=== PATIENT | female | born 1980 ===

== ENCOUNTER 2020-01-10 23:22 | Emergency (ER) | payer OTHER, SELFPAY ==
[2020-01-10 23:40] VITALS: BP 146/84; PULSE 72; RESP 16; TEMP 36.7; O2SAT 100; BMI 24.7
--- NOTE | 2020-01-10 23:50 | ECG_ITS ---
[facility] Test Date: 2020-01-10 Pat Name: Ariella Milton Department: Room: Gender: Female [employer]: : 1980 Requested By: China Alicia Order Number: [id number] Dmepsey MD: Oz Laird M.D. Measurements Intervals [place] Rate: 69 P: 27 [place]: 140 QRS: 32 QRSD: 89 T: 36 QT: 378 QTc: 405 Interpretive Statements SINUS RHYTHM No previous ECG available for comparison Electronically Signed On 01-11-2020 13:48:48 CDT by Oz Laird M.D. [id number]
--- NOTE | 2020-01-11 00:30 | W.ED.ALLEREA ---
HPI - Allergic Reaction General: Chief complaint: Allergic Reaction Stated complaint: rash Time Seen by Provider: 01/11/20 00:08 Source: patient Mode of arrival: ambulatory Limitations: no limitations History of Present Illness: HPI narrative: Patient is a 39-year-old female who presents to ED today with a complaint of intermittent possible allergic reactions. Patient tells me over the past 3 to 4 weeks she has had a total of 4 episodes where she will break out in a diffuse pruritic rash. She tells me she will often feel palpitations along with the rash. She has not found any known environmental, household, chemical exposures. She does tell me 3 of the 4 episodes were while at work towards the end of her shift. She does report feeling very warm and hot prior to rash beginning and does not know if it could be temperature mediated. She states her last episode this evening occurred while at rest. She states on her previous episodes she has taken Benadryl with complete resolution of her symptoms. She denies any shortness of breath, difficulty breathing, lip/tongue swelling. MD complaint: allergic reaction and hives Onset (ago): week(s) Exposure: unknown Associated symptoms: Deny abdominal pain, nausea or vomiting Review of Systems Const: Denies: fever(s), chills, body aches, fatigue or malaise Eyes: Denies: change in vision, blurry vision, photophobia, floaters or seeing flashes ENMT: Denies: throat pain, uvular edema or odynophagia Card: Reports: palpitations; Denies: chest pain, irregular heart rhythm, edema, swelling of feet/ankles, lightheadedness, syncope, pre-syncope, dyspnea on exertion, orthopnea or leg pain with exertion Resp: Denies: dyspnea, productive cough, non-productive cough, pain on inspiration, hemoptysis or chest congestion GI: Denies: abdominal pain, nausea, vomiting, heartburn or diarrhea : Denies: dysuria Musc: Denies: neck pain, back pain or joint pain Skin/Breast: Reports: rash Neuro: Denies: headache(s), numbness in extremities, weakness in extremities or sensory changes [facility] ED Female Reproductive History: Date of last menstrual period: 01/04/20 Physical Exam Const: COMMON NORMALS: no acute distress, average body habitus, patient oriented x3, no limitations, healthy appearing, alert and well nourished GENERAL APPEARANCE: cooperative ORIENTATION/CONSCIOUSNESS: Yes oriented to person, Yes oriented to place and Yes oriented to time HENMT: COMMON NORMALS: normocephalic and atraumatic HEAD & SCALP: normal to inspection, normocephalic and atraumatic FACE & SINUS: normal facial exam MOUTH: Normal oral and palatal mucosa present, lip normal and tongue normal THROAT: posterior oropharynx normal; no uvular edema Eye: GENERAL EYE: appearance normal, both eyes and all related structures Neck/C-Spine: COMMON NORMALS: full ROM, no lymphadenopathy, supple and no meningeal signs Chest: COMMONS NORMALS: normal inspection of the chest Resp: COMMON NORMALS: normal respiratory effort and clear to auscultation bilaterally AUSCULTATION: clear to auscultation bilaterally Cardio: COMMON NORMALS: regular rate and regular rhythm RATE: regular rate RHYTHM: regular rhythm GI: COMMON NORMALS: Normal to inspection, nondistended, normoactive bowel sounds present, Soft to palpation, non-tender, No hepatosplenomegaly present and no masses PALPATION: Yes Soft to palpation and Yes No hepatosplenomegaly present : COMMON NORMALS: Yes no CVA tenderness BLADDER/KIDNEY EXAM: Yes no CVA tenderness Back/Pelvis: COMMON NORMALS: no CVA tenderness and thoracic and lumbar spine normal to inspection Extremity: COMMON NORMALS: normal to inspection Neuro: BLANCA COMA SCALE: document GCS findings Blanca coma scale eye opening: Spontaneous [place] coma scale verbal response: Orientated Blanca coma scale motor response: Obey commands Blanca coma scale total score: 15 COMMON NORMALS: patient oriented x3, CN's II-XII intact bilaterally, moves all extremities, no focal motor deficits and no sensory deficits noted SENSORIUM/ORIENTATION: Yes alert, Yes oriented to person, Yes oriented to place and Yes oriented to time MENINGEAL SIGNS: Yes no meningeal signs Skin: RASHES: rashes noted (diffuse urticaria) Course Vital Signs: Vital signs: Vital Signs Temperature 98.0 F 01/10/20 23:40 Pulse Rate 72 01/10/20 23:40 Respiratory Rate 16 01/10/20 23:40 Blood Pressure 146/84 01/10/20 23:40 Pulse Oximetry 100 01/10/20 23:40 MDM - Allergic Reaction MDM Narrative: Medical decision making narrative: Patient reporting palpitations upon arrival. Her EKG is completely normal. Patient's history is consistent with allergic reaction. She did seem concerned with the palpitations so work-up including blood work, troponins, CXR were offered to patient however she refuses. She seems satisfied with her normal EKG. Patient tells me at this time she would like to follow-up with her primary care provider EKG Data^: EKG 1: EKG interpretation date: 01/10/20 EKG interpretation time: 23:55 Interpretation: Sinus rhythm Rate [address] elevation or depression changes noted Discharge Plan Discharge Patient Disposition: Home Clinical Impression: Urticaria Allergic reaction Qualifiers: Encounter type: initial encounter Qualified Code(s): T78.40XA - Allergy, unspecified, initial encounter Condition: Stable Discharge Orders: Discharge Order (Routine); Ordered 01/11/20 Ordered By: Blanca Guajardo Referrals: Nicky Beckwith MD [Primary Care Provider] - Patient Instructions: Allergic Reaction, Urticaria (ED) Activity Restrictions/Additional Instructions: As discussed please followup with your primary care provider. You may return to the ED for any worsening or concerning symptoms you may have. Discharge Date/Time: 01/11/20 01:11 Coding Level of Care Code ED Steam Table Attendant for Chg Fwd Exam Comprehensive
[2020-01-11] MEDS: diphenhydrAMINE 50 mg/mL SDV 1mL IM (00:39)
== END 2020-01-11 01:11 | disposition home or self-care (01) ==
PROVIDERS: Emergency Provider Physician Assistant; PCP Family Medicine
DX: L50.9 Urticaria, unspecified (principal); T78.40XA Allergy, unspecified, initial encounter
CPT/HCPCS: 12345; 93005; 93010; 99283; J1200